=== PATIENT | female | born 1985 | race Caucasian/White ===

== ENCOUNTER 2016-05-17 23:54 | Emergency (ER) | payer OTHER ==
[~2016-05-17] VITALS: Ht 157.5 cm; Wt 103.4 kg
[~2016-05-17 23:54] MED LIST: KEFLEX500 MG PO; NAPROSYN500 MG PO; NORCO 5-325 TA1 EACH PO; PERCOCET 5-3251 EACH PO; PHENERGAN 25 MG25 M1 PO; PRENATAL; PROMETHAZINE; PROMETRIUM100 MG PO; SENOKOT-S1 TA1 PO; ZOFRAN ODT4 MG DISSOLVE; ZOFRAN ODT4 MG PO
[2016-05-18] MEDS ORDERED: IBUPROFEN 800800 M1 PO
[2016-05-18] MEDS ORDERED: ALEVE220 MG PO (00:01)
[2016-05-18] MEDS ORDERED: NAPROSYN500 MG PO (00:18)
== END 2016-05-18 00:30 | disposition home or self-care (01) ==
LOC: ER 23:54
DX: K08.89 Other specified disorders of teeth and supporting structures (principal); J45.909 Unspecified asthma, uncomplicated; G93.5 Compression of brain; Z88.1 Allergy status to other antibiotic agents; Z91.040 Latex allergy status; Z87.891 Personal history of nicotine dependence